=== PATIENT | female | born 1970 | race Caucasian/White ===

== ENCOUNTER → 2017-04-13 | Outpatient (CLI) | payer BC ==
[2017-04-13 17:19] LABS: BLOOD UREA NITROGEN 11 mg/dL (7-26); BUN/CREATININE RATIO 17 (6-25); CREATININE, SERUM 0.63 mg/dL (0.57-1.11); EST GLOMERULAR FILTRATION RATE > 60 ML/MIN (60-)
--- NOTE | 2017-04-13 18:32 | Diagnostic Imaging Report ---
PROCEDURE: A single AP view of the chest. COMPARISON: None. INDICATIONS: LINE PLACEMENT FINDINGS: Lines/tubes: Right PICC tip overlies the lower SVC. Lungs: The lungs are well inflated and clear. There is no evidence of pneumonia or pulmonary edema. Pleura: There is no pleural effusion or pneumothorax. Heart and mediastinum: The heart and the mediastinum are unremarkable. Bones: No acute bony abnormality. IMPRESSION: No acute cardiopulmonary disease. Dictated by: Chang Varela M.D. on 04/13/2017 at 18:42 Electronically approved by: Chang Varela M.D. on 04/13/2017 at 18:42
== END ==
LOC: DX 16:15
PROVIDERS: ATTEND Internal Medicine Infectious Disease
DX: K61.1 Rectal abscess (principal)
CPT/HCPCS: 36415; 36569; 71045; 82565; 84520